=== PATIENT | female | born 1985 | race Two or more races ===

== ENCOUNTER 2022-11-02 09:50 | Emergency (ER) | payer MEDICAID ==
[~2022-11-02] VITALS: Ht 152.4 cm; Wt 85.9 kg
[2022-11-02 10:21] VITALS: TEMP 98.4
[2022-11-02] MEDS ORDERED: NEOMYCIN/POLYMYXIN B/HYDROCORT 10 ML OTIC SUSPENSION AU ONE (12:30)
[2022-11-02 13:15] VITALS: BP 127/72; PULSE 80; RESP 18
== END 2022-11-02 13:16 | disposition home or self-care (01) ==
LOC: EMS 09:51
DX: H60.91 Unspecified otitis externa, right ear (principal); N63.10 Unspecified lump in the right breast, unspecified quadrant; Z98.890 Other specified postprocedural states
CPT/HCPCS: 99283